=== PATIENT | female | born 1995 | race African-American/Black ===

== ENCOUNTER 2017-03-11 20:14 | Emergency (ER) | payer OTHER ==
--- NOTE | 2017-03-11 20:53 | ER Document Report ---
ED Neck/Back Problem - General Chief Complaint: Back Pain Stated Complaint: BACK INJURY Time Seen by Provider: 03/11/17 20:49 Mode of Arrival: Ambulatory Information source: Patient TRAVEL OUTSIDE OF THE [place] IN LAST 30 DAYS: No - HPI Patient complains to provider of: Pain, Injury - 21-year-old female presented to the emergency room today stating she had made back pain right lateral of midline after moving a dresser. - Related Data Allergies/Adverse Reactions: No Known Allergies Allergy (Verified 04/13/16 11:56) Past Medical History - General Information source: Patient - Social History Smoking Status: Never Smoker Cigarette use (# per day): No Chew tobacco use (# tins/day): No Smoking Education Provided: No Family History: None Renal/ Medical History: Denies: Hx Peritoneal Dialysis Review of Systems - Review of Systems Constitutional: No symptoms reported EENT: No symptoms reported Cardiovascular: No symptoms reported Respiratory: No symptoms reported Gastrointestinal: No symptoms reported Genitourinary: No symptoms reported Female Genitourinary: No symptoms reported Musculoskeletal: No symptoms reported Skin: No symptoms reported Hematologic/Lymphatic: No symptoms reported Neurological/Psychological: No symptoms reported Physical Exam - Vital signs Vitals: Temp Pulse Resp BP Pulse Ox 97.5 F 106 H 20 146/82 H 98 03/11/17 20:17 03/11/17 20:17 03/11/17 20:17 03/11/17 20:17 03/11/17 20:17 Interpretation: Normal - General General appearance: Appears well, Alert - HEENT Head: Normocephalic, Atraumatic Eyes: Normal Pupils: PERRL - Respiratory Respiratory status: No respiratory distress Chest status: Nontender Breath sounds: Normal Chest palpation: Normal - Cardiovascular Rhythm: Regular Heart sounds: Normal auscultation Murmur: No - Abdominal Inspection: Normal Distension: No distension Bowel sounds: Normal Tenderness: Nontender Organomegaly: No organomegaly - Back Back: Normal, Nontender, Other - Palpable spasm right lateral of midline to thoracic spine no crepitus no pain no tenderness midline. - Extremities General upper extremity: Normal inspection, Nontender, Normal color, Normal ROM , Normal temperature General lower extremity: Normal inspection, Nontender, Normal color, Normal ROM , Normal temperature, Normal weight bearing. No: Sindy's sign - Neurological Neuro grossly intact: Yes Cognition: Normal Orientation: AAOx4 [place] Coma Scale Eye Opening: Spontaneous [place] Coma Scale Verbal: Oriented [place] Coma Scale Motor: Obeys Commands [place] Coma Scale Total: 15 Speech: Normal Motor strength normal: LUE, RUE, LLE, RLE Sensory: Normal - Psychological Associated symptoms: Normal affect, Normal mood - Skin Skin Temperature: Warm Skin Moisture: Dry Skin Color: Normal Course - Re-evaluation Re-evalutation: 03/11/17 20:51 No lower extremity numbness tingling saddle anesthesia loss of bowel or bladder function ambulatory with a rhythmic and steady gait good distal pulses. - Vital Signs Vital signs: Temp Pulse Resp BP Pulse Ox 97.5 F 106 H 20 146/82 H 98 03/11/17 20:17 03/11/17 20:17 03/11/17 20:17 03/11/17 20:17 03/11/17 20:17 Discharge - Discharge Clinical Impression: Thoracic myofascial strain Qualifiers: Encounter type: initial encounter Qualified Code(s): S29.019A - Strain of muscle and tendon of unspecified wall of thorax, initial encounter Condition: Good Disposition: HOME, SELF-CARE Instructions: Low Back Pain ([facility]), Muscle Strain ([facility]) Additional Instructions: Myofascial Pain Myofascial pain syndrome is chronic or recurring muscle pain. The pain can be aching, cramping, or burning. Sometimes tingling and numbness accompanies the pain. It most often affects the neck, upper back, and shoulders. Pain may radiate into the arms and hands. The pain has no clear-cut explanation. It may begin with an injury, but we don't know why the pain continues. Myofascial pain syndrome may become worse with stress, anxiety, or emotional upset, or after over-use of the muscles. The symptoms will usually go away with time, but sometimes this takes weeks or months. Rest the area when there is a flair of pain. Either cold packs or heat can reduce spasm and pain. Antiinflammatory medication such as ibuprofen can help reduce pain and inflammation. Keep your body in good physical condition by getting enough exercise. Stretching exercises of the involved muscles can help. Call the doctor or return if pain becomes severe, or if you develop new symptoms. Follow-up with private doctor in 1 to 2 days for final radiology readings please return to the emergency room for any change worsening condition. Follow up with private M.D. for all other routine health care needs. Prescriptions: Hydrocodone/Acetaminophen [Perley 5-325 Tablet] 1 each PO Q4 PRN #20 tablet PRN Reason:
[2017-03-11 21:20] VITALS: BP 135/86
== END 2017-03-11 21:15 | disposition home or self-care (01) ==
LOC: ER 20:14
DX: S29.019A Strain of muscle and tendon of unspecified wall of thorax, initial encounter (principal); X50.0XXA Overexertion from strenuous movement or load, initial encounter
CPT/HCPCS: 99283

== ENCOUNTER 2018-01-03 23:50 | Emergency (ER) | payer OTHER ==
[2018-01-04] MEDS ORDERED: NORMAL SALINE 1000 ML 1,000 ML IV ONE (00:44)
--- NOTE | 2018-01-04 00:47 | ER Document Report ---
ED General - General Chief Complaint: Epigastric pain, Gallbladder problem Stated Complaint: ABDOMINAL PAIN Time Seen by Provider: 01/04/18 00:41 Mode of Arrival: Ambulatory Information source: Patient Notes: This is a 22-year-old female 2 para 1, 24 weeks who presents to the emergency room with upper abdominal pain. Patient states that she was diagnosed with gallstones while she was in [place] 2 months ago. She states she felt fine earlier in the day but started having upper abdominal discomfort towards this evening. The patient does not feel like she is having any contractions TRAVEL OUTSIDE OF THE [place] IN LAST 30 DAYS: No - HPI Onset: Just prior to arrival Onset/Duration: Gradual Quality of pain: Dull Severity: Moderate Pain Level: 2 Associated symptoms: denies: Chills, Fever Exacerbated by: Denies Relieved by: Denies Similar symptoms previously: Yes Recently seen / treated by doctor: Yes - Related Data Allergies/Adverse Reactions: No Known Allergies Allergy (Verified 04/13/16 11:56) Past Medical History - General Information source: Patient - Social History Smoking Status: Never Smoker Cigarette use (# per day): No Chew tobacco use (# tins/day): No Frequency of alcohol use: None Drug Abuse: None Lives with: Family Family History: None Patient has suicidal ideation: No Patient has homicidal ideation: No - Medical History Medical History: Negative Renal/ Medical History: Denies: Hx Peritoneal Dialysis GI Medical History: Reports: Other - Recently diagnosed with gallstones Surgical Hx: Negative - Immunizations Hx Diphtheria, Pertussis, Tetanus Vaccination: Yes Review of Systems - Review of Systems Constitutional: denies: Chills, Fever EENT: No symptoms reported Cardiovascular: No symptoms reported Respiratory: No symptoms reported Gastrointestinal: See HPI Genitourinary: No symptoms reported Female Genitourinary: No symptoms reported Musculoskeletal: No symptoms reported Skin: No symptoms reported Hematologic/Lymphatic: No symptoms reported Neurological/Psychological: No symptoms reported Physical Exam - Vital signs Vitals: Temp Pulse Resp BP Pulse Ox 97.5 F 95 18 131/70 H 100 01/03/18 23:57 01/03/18 23:57 01/03/18 23:57 01/03/18 23:57 01/03/18 23:57 Notes: Physical exam: GENERAL: 22-year-old female, alert and oriented 3, no acute distress HEAD: Atraumatic, normocephalic. EYES: Pupils equal round and reactive to light, extraocular movements intact, sclera anicteric, conjunctiva are normal. ENT: TMs normal, nares patent, oropharynx clear without exudates. Moist mucous membranes. NECK: Normal range of motion, supple without obvious mass or JVD. LUNGS: Breath sounds clear to auscultation bilaterally and equal. No wheezes rales or rhonchi. HEART: Regular rate and rhythm without murmurs, rubs or gallops. ABDOMEN: Soft, normoactive bowel sounds. Mild tenderness to the upper abdomen to palpation. No guarding, no rebound. No masses appreciated. EXTREMITIES: Normal range of motion, no pitting or edema. No clubbing or cyanosis. NEUROLOGICAL: Cranial nerves II through XII grossly intact. Normal speech, moving all extremities. PSYCH: Normal mood, normal affect. SKIN: Warm, Dry, normal turgor, no rashes or lesions noted. Course - Vital Signs Vital signs: Temp Pulse Resp BP Pulse Ox 97.5 F 95 18 131/70 H 100 01/03/18 23:57 01/03/18 23:57 01/03/18 23:57 01/03/18 23:57 01/03/18 23:57 - Laboratory Result Diagrams: 01/04/18 01:25 01/04/18 01:25 Laboratory results interpreted by me: 01/04/18 01/04/18 01/04/18 01:25 01:25 02:10 WBC 14.5 H Hgb 11.6 L Hct 35.3 L Seg Neutrophils % 80.4 H Absolute Neutrophils 11.6 H Chloride 109 H BUN 6 L AST 48 H Urine Ketones TRACE H Urine Blood SMALL H - Diagnostic Test Radiology reviewed: Image reviewed, Reports reviewed - Ultrasound of the right upper quadrant shows gallstones with sludge without any obvious evidence of cholecystitis.Limited OB ultrasound shows good heartbeat Discharge - Discharge Clinical Impression: Cholelithiasis, 24 weeks Condition: Stable Disposition: HOME, SELF-CARE Additional Instructions: Thank you for choosing [facility] for your care. The examination and treatment you have received in the Emergency Department today has been rendered on an emergency basis only and is not intended to be a substitute for complete medical care. You should contact your doctor as it is important that she/he examine you for any new or remaining problems. If given a copy of any lab tests or radiology reports, please bring them with you when you see your physician. If your problem worsens or new symptoms appear and you are unable to arrange prompt follow-up care, return to the Emergency Department. Specific signs to look out for: Worsening abdominal pain, fever (temperature greater than 100.5), contractions, or concerns or getting worse. Any other instructions: Avoid fried fatty food. Follow-up with your OB doctor. Referrals: DANIELITO GUILLERMO MD [Primary Care Provider] - Follow up in 3-5 days
[2018-01-04 01:39] LABS: ABSOLUTE EOSINOPHILS # (AUTO) 0.2 10^3/uL (0.0-0.6); ABSOLUTE LYMPHOCYTES (AUTO) 2.1 10^3/uL (0.5-4.7); ABSOLUTE MONOCYTES (AUTO) 0.6 10^3/uL (0.1-1.4); ABSOLUTE NEUT (AUTO) 11.6 10^3/uL (1.7-8.2); BASOPHILS % (AUTO) 0.1 % (0-2); EOSINOPHILS % (AUTO) 1.1 % (0-6); HEMATOCRIT 35.3 % (36.0-47.0); HEMOGLOBIN 11.6 g/dL (12.0-15.5); LYMPHOCYTES % (AUTO) 14.5 % (13-45); MEAN CORPUSCULAR HEMOGLOBIN 28.7 pg (27.0-33.4); MEAN CORPUSCULAR VOLUME 87 fl (80-97); MONOCYTES % (AUTO) 3.9 % (3-13); PLATELET COUNT 258 10^3/uL (150-450); RED BLOOD COUNT 4.06 10^6/uL (3.72-5.28); RED CELL DISTRIBUTION WIDTH 13.8 % (11.5-14.0); SEGMENTED NEUTROPHILS % (AUTO) 80.4 % (42-78); TOTAL CELLS COUNTED % (AUTO) 100 %; WHITE BLOOD COUNT 14.5 10^3/uL (4.0-10.5)
[2018-01-04 01:52] LABS: ALANINE AMINOTRANSFERASE 29 U/L (9-52); ALBUMIN 3.7 g/dL (3.5-5.0); ALKALINE PHOSPHATASE 58 U/L (38-126); ANION GAP 9 (5-19); ASPARTATE AMINO TRANSFERASE 48 U/L (14-36); BILIRUBIN,DIRECT 0.2 mg/dL (0.0-0.4); BILIRUBIN,TOTAL 0.2 mg/dL (0.2-1.3); BLOOD UREA NITROGEN 6 mg/dL (7-20); CARBON DIOXIDE 22 mmol/L (22-30); CHLORIDE 109 mmol/L (98-107); GLUCOSE 106 mg/dL (75-110); POTASSIUM 3.8 mmol/L (3.6-5.0); TOTAL PROTEIN 7.1 g/dL (6.3-8.2)
[2018-01-04 02:40] LABS: APPEARANCE,URINE CLEAR; BILIRUBIN,URINE NEGATIVE (NEGATIVE); COLOR,URINE YELLOW; GLUCOSE, URINE NEGATIVE (NEGATIVE); KETONES,URINE TRACE mg/dL (NEGATIVE); LEUKOCYTE ESTERASE,URINE NEGATIVE (NEGATIVE); NITRITE,URINE NEGATIVE (NEGATIVE); PROTEIN,URINE NEGATIVE (NEGATIVE); URINE SPECIFIC GRAVITY 1.019; UROBILINOGEN,URINE NEGATIVE mg/dL (<2.0)
--- NOTE | 2018-01-04 03:42 | RADIOLOGY REPORT (SQ) ---
EXAM DESCRIPTION: U/S ABDOMEN LIMITED W/O DOP CLINICAL HISTORY: upper abd pain eval for gb disease COMPARISON: None. TECHNIQUE: Real-time sonographic images of the right upper abdomen were obtained using a curved multihertz transducer. FINDINGS: Pancreas: The visualized portions of the pancreas are unremarkable. Vascular: The visualized portions of the aorta and IVC are unremarkable. Liver: The liver has normal contour and echogenicity. Hepatopedal flow in the portal vein. The common bile duct measures 0.4 cm. Gallbladder: Cholelithiasis as well as gallbladder sludge identified in the gallbladder lumen. Normal wall thickness. Negative reported sonographic Man sign. Right Kidney: The right kidney measures 13.3 cm in length. Mildly dilated right renal pelvis. IMPRESSION: 1. Cholelithiasis and gallbladder sludge. No other sonographic evidence of acute cholecystitis. 2. Mildly dilated right renal pelvis is at the upper limits of normal for right kidney during .
[2018-01-04] MEDS ORDERED: DIPHENHYDRAMINE HCL 50 MG/ML VIAL IV ONE (03:44)
[2018-01-04] MEDS ORDERED: MORPHINE SULFATE 10 MG/ML INJ IV ONE (03:44)
--- NOTE | 2018-01-04 03:44 | RADIOLOGY REPORT (SQ) ---
EXAM DESCRIPTION: U/S OB LIMITED CLINICAL HISTORY: 22 years Female, upper abdominal pain COMPARISON: None. TECHNIQUE: Limited second trimester obstetrical ultrasound for laterally. FINDINGS: presentation: Cephalic Placenta: Anterior placenta. heart rate: 147 bpm. Amniotic fluid: LVP of 4.5 cm. Cervical length: 2.6 cm. Closed. IMPRESSION: Single live intrauterine with heart rate of 147 beats for minute.
[2018-01-04 04:32] VITALS: BP 133/88
== END 2018-01-04 04:37 | disposition home or self-care (01) ==
LOC: ER 23:50
DX: O99.612 Diseases of the digestive system complicating pregnancy, second trimester (principal); K80.20 Calculus of gallbladder without cholecystitis without obstruction; O26.892 Other specified pregnancy related conditions, second trimester; R10.10 Upper abdominal pain, unspecified; Z3A.24 24 weeks gestation of pregnancy
CPT/HCPCS: 99284; 96361; 96374; 96375; 36415; 85025; 80053; 81001; 76705; 76815; J1200; J2270; J7030

== ENCOUNTER 2018-01-05 08:48 | Observation (INO) | payer OTHER ==
[2018-01-05] MEDS ORDERED: METOCLOPRAMIDE HCL INJ/PF 10 MG/2 ML SDV IV ONE (09:29)
[2018-01-05] MEDS ORDERED: NORMAL SALINE 1000 ML 1,000 ML IV ONE ×2 (09:30→11:35)
--- NOTE | 2018-01-05 09:35 | ER Document Report ---
ED Medical Screen (RME) - General Chief Complaint: Upper Abdominal Pain Stated Complaint: RIGHT UPPER QUADRANT PAIN Time Seen by Provider: 01/05/18 09:24 Mode of Arrival: Ambulatory Information source: Patient Notes: 22 yr old female 21 weeks presents with continued RUQ pain, pt admits to n/v since last night when she was seen had u/s consistent with cholilithiasis without cholecystitis. Pt afebrile I did contact surgeon poured concrete wall technician, he will evaluate the patient I have greeted and performed a rapid initial assessment of this patient. A comprehensive ED assessment and evaluation of the patient, analysis of test results and completion of the medical decision making process will be conducted by additional ED providers. PHYSICAL EXAMINATION: GENERAL: Well-appearing, well-nourished and in no acute distress. HEAD: Atraumatic, normocephalic. EYES: Pupils equal round extraocular movements intact, conjunctiva are normal. ENT: Nares patent NECK: Normal range of motion LUNGS: No respiratory distress Abdomen: Gravid tender right upper quadrant Musculoskeletal: Normal range of motion NEUROLOGICAL: Normal speech, normal gait. PSYCH: Normal mood, normal affect. SKIN: Warm, Dry, normal turgor, no rashes or lesions noted. TRAVEL OUTSIDE OF THE [place] IN LAST 30 DAYS: No - Related Data Allergies/Adverse Reactions: No Known Allergies Allergy (Verified 04/13/16 11:56) Past Medical History - Social History Frequency of alcohol use: None Drug Abuse: None Renal/ Medical History: Denies: Hx Peritoneal Dialysis Past Surgical History: Reports: Hx Section - X1 - Immunizations Hx Diphtheria, Pertussis, Tetanus Vaccination: Yes Physical Exam - Vital signs Vitals: Temp Pulse Resp BP Pulse Ox 97.9 F 90 16 135/67 H 98 01/05/18 08:52 01/05/18 08:52 01/05/18 08:52 01/05/18 08:52 01/05/18 08:52 Course - Vital Signs Vital signs: Temp Pulse Resp BP Pulse Ox 97.9 F 90 16 135/67 H 98 01/05/18 08:52 01/05/18 08:52 01/05/18 08:52 01/05/18 08:52 01/05/18 08:52
[2018-01-05] MEDS ORDERED: ACETAMINOPHEN 325 MG TABLET PO ONE (09:43)
--- NOTE | 2018-01-05 09:54 | ER Document Report ---
ED GI/ - General Chief Complaint: Upper Abdominal Pain Stated Complaint: RIGHT UPPER QUADRANT PAIN Time Seen by Provider: 01/05/18 09:24 Mode of Arrival: Ambulatory Notes: 22-year-old female with 24 weeks returns to the emergency room today because of persistent epigastric right upper quadrant pain that started yesterday after eating potato chips. This is her second episode of gallbladder attack. She does not hurt as bad today as she did yesterday but she is wanting nausea medication and pain medication. Vomited once this morning and no BM in 2 days. TRAVEL OUTSIDE OF THE [place] IN LAST 30 DAYS: No - Related Data Allergies/Adverse Reactions: No Known Allergies Allergy (Verified 04/13/16 11:56) Past Medical History - General Information source: Patient - Social History Smoking Status: Former Smoker Frequency of alcohol use: None Drug Abuse: None Lives with: Family Family History: None Patient has suicidal ideation: No Patient has homicidal ideation: No - Medical History Medical History: Negative Renal/ Medical History: Denies: Hx Peritoneal Dialysis Past Surgical History: Reports: Hx Section - X1 - Immunizations Hx Diphtheria, Pertussis, Tetanus Vaccination: Yes Review of Systems - Review of Systems Constitutional: No symptoms reported EENT: No symptoms reported Cardiovascular: No symptoms reported Respiratory: No symptoms reported Gastrointestinal: See HPI Genitourinary: No symptoms reported Female Genitourinary: No symptoms reported Musculoskeletal: No symptoms reported Skin: No symptoms reported Hematologic/Lymphatic: No symptoms reported Neurological/Psychological: No symptoms reported Physical Exam - Vital signs Vitals: Temp Pulse Resp BP Pulse Ox 97.9 F 90 16 135/67 H 98 01/05/18 08:52 01/05/18 08:52 01/05/18 08:52 01/05/18 08:52 01/05/18 08:52 Interpretation: Normal - General General appearance: Appears well, Alert - HEENT Head: Normocephalic, Atraumatic Eyes: Normal Conjunctiva: Normal Pupils: PERRL Mucous membranes: Normal Pharynx: Normal Neck: Supple. No: Lymphadenopathy - Respiratory Respiratory status: No respiratory distress Chest status: Nontender Breath sounds: Normal Chest palpation: Normal - Cardiovascular Rhythm: Regular Heart sounds: Normal auscultation Murmur: No - Abdominal Inspection: Normal Distension: No distension Bowel sounds: Normal Tenderness: Tender - RUQ Organomegaly: Mass - fundus - Back Back: Normal, Nontender. No: CVA tenderness - Extremities General upper extremity: Normal inspection, Nontender, Normal color, Normal ROM , Normal temperature General lower extremity: Normal inspection, Nontender, Normal color, Normal ROM , Normal temperature, Normal weight bearing. No: Sindy's sign - Neurological Neuro grossly intact: Yes Cognition: Normal Orientation: AAOx4 [place] Coma Scale Eye Opening: Spontaneous [place] Coma Scale Verbal: Oriented [place] Coma Scale Motor: Obeys Commands [place] Coma Scale Total: 15 Speech: Normal Motor strength normal: LUE, RUE, LLE, RLE Sensory: Normal - Psychological Associated symptoms: Normal affect, Normal mood - Skin Skin Temperature: Warm Skin Moisture: Dry Skin Color: Normal Skin irregularity: negative: Rash Course - Re-evaluation Re-evalutation: 01/05/18 11:27 Dr. Pond will take the patient to the OR for lap saundra today. The patient has been n.p.o. I will add normal saline at 150 an hour. She is more comfortable after the morphine IV. - Vital Signs Vital signs: Temp Pulse Resp BP Pulse Ox 97.9 F 90 16 135/67 H 98 01/05/18 08:52 01/05/18 08:52 01/05/18 08:52 01/05/18 08:52 01/05/18 08:52 - Laboratory Result Diagrams: 01/05/18 09:40 01/05/18 09:40 Laboratory results interpreted by me: 01/05/18 01/05/18 09:40 09:40 Hct 35.9 L BUN 4 L Total Bilirubin 1.6 H Direct Bilirubin 1.3 H AST 105 H ALT 158 H Discharge - Discharge Clinical Impression: Cholelithiasis pain, 24 week , Nausea and vomiting, Elevated liver enzymes Condition: Good Disposition: ADMITTED INPATIENT
[2018-01-05 10:01] LABS: ABSOLUTE EOSINOPHILS # (AUTO) 0.1 10^3/uL (0.0-0.6); ABSOLUTE LYMPHOCYTES (AUTO) 2.4 10^3/uL (0.5-4.7); ABSOLUTE MONOCYTES (AUTO) 0.5 10^3/uL (0.1-1.4); BASOPHILS % (AUTO) 0.3 % (0-2); EOSINOPHILS % (AUTO) 1.6 % (0-6); HEMATOCRIT 35.9 % (36.0-47.0); HEMOGLOBIN 12.1 g/dL (12.0-15.5); MEAN CORPUSCULAR HEMOGLOBIN 28.9 pg (27.0-33.4); MEAN CORPUSCULAR HGB CONC 33.7 g/dL (32.0-36.0); MEAN CORPUSCULAR VOLUME 86 fl (80-97); MONOCYTES % (AUTO) 5.8 % (3-13); PLATELET COUNT 304 10^3/uL (150-450); RED BLOOD COUNT 4.19 10^6/uL (3.72-5.28); RED CELL DISTRIBUTION WIDTH 13.7 % (11.5-14.0); SEGMENTED NEUTROPHILS % (AUTO) 66.3 % (42-78); TOTAL CELLS COUNTED % (AUTO) 100 %
[2018-01-05] MEDS ORDERED: MORPHINE SULFATE 10 MG/ML INJ IV ONE ×2 (10:06→12:53)
[2018-01-05 10:15] LABS: ALANINE AMINOTRANSFERASE 158 U/L (9-52); ALBUMIN 4.1 g/dL (3.5-5.0); ALKALINE PHOSPHATASE 96 U/L (38-126); ANION GAP 11 (5-19); ASPARTATE AMINO TRANSFERASE 105 U/L (14-36); BILIRUBIN,DIRECT 1.3 mg/dL (0.0-0.4); BILIRUBIN,TOTAL 1.6 mg/dL (0.2-1.3); BLOOD UREA NITROGEN 4 mg/dL (7-20); CALCIUM 9.4 mg/dL (8.4-10.2); CARBON DIOXIDE 22 mmol/L (22-30); CHLORIDE 107 mmol/L (98-107); GLUCOSE 86 mg/dL (75-110); LIPASE 55.3 U/L (23-300); POTASSIUM 3.8 mmol/L (3.6-5.0); SODIUM 139.7 mmol/L (137-145); TOTAL PROTEIN 7.5 g/dL (6.3-8.2)
[2018-01-05] MEDS ORDERED: DEXAMETHASONE SOD PHOSPHATE INJ 4 MG/1 ML VIAL ONE (11:51)
[2018-01-05] MEDS ORDERED: ROCURONIUM BROMIDE INJ 50 MG/5 ML VIAL IV ONE (11:51)
[2018-01-05] MEDS ORDERED: NEOSTIGMINE METHYLSULFATE 10 MG/10 ML VIAL ONE (11:51)
[2018-01-05] MEDS ORDERED: LIDOCAINE 2% INJ-PF (20 MG/ML) 2 ML AMPUL ONE (11:51)
[2018-01-05] MEDS ORDERED: GLYCOPYRROLATE INJ 0.4 MG/2 ML VIAL ONE (11:51)
[2018-01-05] MEDS ORDERED: SUCCINYLCHOLINE CHLORIDE INJ 200 MG/10 ML VIAL ONE (11:51)
[2018-01-05] MEDS ORDERED: ONDANSETRON HCL INJ/PF 4 MG/2 ML SDV ONE ×2 (11:51→21:08)
[2018-01-05 13:16] LABS: APPEARANCE,URINE CLEAR; BILIRUBIN,URINE NEGATIVE (NEGATIVE); COLOR,URINE YELLOW; GLUCOSE, URINE NEGATIVE (NEGATIVE); KETONES,URINE 80 mg/dL (NEGATIVE); LEUKOCYTE ESTERASE,URINE NEGATIVE (NEGATIVE); NITRITE,URINE NEGATIVE (NEGATIVE); PROTEIN,URINE NEGATIVE (NEGATIVE); URINE SPECIFIC GRAVITY 1.015; UROBILINOGEN,URINE NEGATIVE mg/dL (<2.0)
[2018-01-05] MEDS ORDERED: BUPIVACAINE HCL 0.25 % INJ/PF (2.5 MG/1 ML) 30 ML VIAL ONE (16:43)
[2018-01-05] MEDS ORDERED: LIDOCAINE 1% INJ-PF (10 MG/ML) 30 ML SDV ONE (16:43)
[2018-01-05] MEDS ORDERED: FENTANYL CITRATE INJ/PF 250 MCG/5 ML AMPULE ONE (16:44)
[2018-01-05] MEDS ORDERED: PROPOFOL INJ 200 MG/20 ML VIAL IV ONE (16:45)
[2018-01-05] MEDS ORDERED: ACETAMINOPHEN 100 ML IV ONE (16:45)
[2018-01-05] MEDS ORDERED: MIDAZOLAM 2 MG/2 ML INJ ONE (16:45)
[2018-01-05] MEDS ORDERED: FENTANYL CITRATE INJ/PF 100 MCG/2 ML AMPUL ONE ×2 (16:45→18:57)
--- NOTE | 2018-01-05 16:50 | PDOC H&P ---
History of Present Illness Admission Date/PCP: 01/05/18 12:18 History of Present Illness: MICHELE TAI is a 22 year old female who is 24 weeks . She presented to the ER with RUQ pain that started yesterday evening and has not stopped. She was in the ER yesterday and had an ultrasound that revealed gallstones, no pericholecystic fluid or wall thickening. She was discharged home on analgesics but this has not helped. She represented to the ER today because of continued pain. Today her LFTs are elevated. Past Medical History Psychiatric Medical History: Denies: Depression Past Surgical History Past Surgical History: Reports: Section - X1 Social History Lives with: Family Smoking Status: Former Smoker Frequency of Alcohol Use: None Hx Recreational Drug Use: No Drugs: None Hx Prescription Drug Abuse: No - Advance Directive Resuscitation Status: Full Code Family History Family History: None Parental Family History Reviewed: No Children Family History Reviewed: Unknown Sibling(s) Family History Reviewed.: Unknown Medication/Allergy Home Medications: No Home Medications 01/05/18 Allergies/Adverse Reactions: No Known Allergies Allergy (Verified 04/13/16 11:56) Review of Systems Constitutional: ABSENT: chills, fever(s), headache(s), weight gain, weight loss Eyes: ABSENT: visual disturbances Ears: ABSENT: hearing changes Cardiovascular: ABSENT: chest pain, dyspnea on exertion, edema, orthropnea, palpitations Respiratory: ABSENT: cough, hemoptysis Gastrointestinal: PRESENT: as per HPI Genitourinary: ABSENT: dysuria, hematuria Musculoskeletal: ABSENT: joint swelling Integumentary: ABSENT: rash, wounds Neurological: ABSENT: abnormal gait, abnormal speech, confusion, dizziness, focal weakness, syncope Psychiatric: ABSENT: anxiety, depression, homidical ideation, suicidal ideation Endocrine: ABSENT: cold intolerance, heat intolerance, polydipsia, polyuria Hematologic/Lymphatic: ABSENT: easy bleeding, easy bruising Physical Exam Vital Signs: Temp Pulse Resp BP Pulse Ox 98.1 F 88 30 H 135/80 H 100 01/05/18 14:39 01/05/18 14:39 01/05/18 14:39 01/05/18 14:39 01/05/18 14:39 Intake & Output 01/04/18 01/05/18 01/06/18 06:59 06:59 06:59 Weight 111.4 kg General appearance: PRESENT: mild distress, obese Head exam: PRESENT: atraumatic, normocephalic Eye exam: PRESENT: conjunctiva pink, EOMI, PERRLA. ABSENT: scleral icterus Ear exam: PRESENT: normal external ear exam Neck exam: ABSENT: carotid bruit, JVD, lymphadenopathy, thyromegaly Respiratory exam: PRESENT: clear to auscultation hellen. ABSENT: rales, rhonchi, wheezes Cardiovascular exam: PRESENT: RRR. ABSENT: diastolic murmur, rubs, systolic murmur GI/Abdominal exam: PRESENT: normal bowel sounds, tenderness - epigastric/RUQ Neurological exam: PRESENT: alert, awake, oriented to person, oriented to place , oriented to time, oriented to situation, CN II-XII grossly intact. ABSENT: motor sensory deficit Psychiatric exam: PRESENT: appropriate affect, normal mood. ABSENT: homicidal ideation, suicidal ideation Results Laboratory Results: 01/05/18 12:39 Urine Color YELLOW Urine Appearance CLEAR Urine pH 6.0 Ur Specific [place] 1.015 Urine Protein NEGATIVE Urine Glucose (UA) NEGATIVE Urine Ketones 80 H Urine Blood SMALL H Urine Nitrite NEGATIVE Ur Leukocyte Esterase NEGATIVE Urine WBC (Auto) 2 Urine RBC (Auto) 3 Assessment & Plan - Diagnosis (1) Calculus of gallbladder with acute cholecystitis Is this a current diagnosis for this admission?: Yes (2) Elevated liver enzymes Is this a current diagnosis for this admission?: Yes - Plan Summary Plan Summary: The patient is admitted Will have a laparoscopic cholecystectomy. OB consult SCDs incentive spirometry
[2018-01-05] MEDS ORDERED: FENTANYL CITRATE INJ/PF 100 MCG/2 ML AMPUL IV PRN ×3 (17:37)
[2018-01-05] MEDS ORDERED: ONDANSETRON HCL INJ/PF 4 MG/2 ML SDV IV PRN ×2 (17:37→20:43)
[2018-01-05] MEDS ORDERED: PROMETHAZINE HCL INJ 25 MG/1 ML VIAL IV PRN (17:37)
[2018-01-05] MEDS ORDERED: MEPERIDINE HCL/PF INJ 25 MG/1 ML DISP.SYRIN IV PRN (17:37)
[2018-01-05] MEDS ORDERED: DIPHENHYDRAMINE HCL 50 MG/ML VIAL IV PRN (17:37)
[2018-01-05] MEDS ORDERED: ENOXAPARIN SODIUM INJ 40 MG/0.4 ML DISP.SYRIN SUBCUT ONE (19:00)
--- NOTE | 2018-01-05 19:46 | Operative Report ---
Operative Report PREOPERATIVE DIAGNOSIS: Acute Cholecystitis POSTOPERATIVE DIAGNOSIS: Acute Cholecystitis OPERATION: Laparoscopic Cholecystectomy SURGEON: RAÚL PEREZ ANESTHESIA: GA TISSUE REMOVED OR ALTERED: Gallbladder COMPLICATIONS: None ESTIMATED BLOOD LOSS: 20 ml INTRAOPERATIVE FINDINGS: 1. Gallbladder distended with bile. 2. Flimsy adhesions around the gallbladder. 3. Dense adhesions in the Calot's triangle. 4. Gallstones. 5. Significant pericholecystic edema PROCEDURE: The patient was brought to the operating room and placed on the operating table. General endotracheal anesthesia was administered and she was positioned supine with both arms placed on arm boards. A time out was done. The abdomen was prepped with chloraprep and sterile drapes laid. Under sterile aseptic conditions, access to the peritoneal cavity was gained using the open Tavo technique with a 10mm port at the umbilicus. Pneumoperitoneum was insufflated to 15 mmHg. Three additional ports were placed, a 10mm midline subxiphoid port and two 5mm right subcostal ports, one in the midclavicular line and the other in the anterior axillary line. The gallbladder was first aspirated of 60 ml of greenish bile and then it was grasped at the fundus with a grasper passed through the lateral right subcostal port. The infundibulum was grasped with a grasper passed through the medial right subcostal port. The Calot's triangle was dissected out to expose the cystic duct and artery with a critical view of safety displayed anteriorly and posteriorly. There were dense adhesions in the Calot's triangle necessitating a careful dissection. The duct was doubly clipped toward the patient side and singly clipped toward the gallbladder and transected between the clips. The artery was transected with the Ligasure. The gallbladder was then dissected off the liver bed with the laparoscopic monopolar electrosurgical unit and retrieved from the peritoneal cavity in an endopouch. The pneumoperitoneum was desufflated and all the ports removed. The umbilical port site had the fascial layer closed with 0-vicryl. The skin incisions were closed with 4-0 monocryl subcuticular stitches. The wounds were infiltrated with local anesthesia, a 1:1 mixture of 1% lidocaine and 0.25% Bupivacaine, a total of 20 ml, they were cleaned and dressed with dermabond. The patient tolerated the procedure well, she was extubated in the operating room and taken to the PACU in stable condition.
[2018-01-05] MEDS ORDERED: MORPHINE SULFATE 10 MG/ML INJ IV PRN (20:43)
[2018-01-05] MEDS ORDERED: MORPHINE SULFATE 10 MG/ML INJ ONE (21:04)
[2018-01-05] MEDS ORDERED: MORPHINE SULFATE 10 MG/ML INJ INJ ONE (23:00)
[2018-01-06] MEDS: MORPHINE SULFATE 10 MG/ML INJ IV PRN ×5 (00:35→22:18)
[2018-01-06 07:10] LABS: ALANINE AMINOTRANSFERASE 147 U/L (9-52); ALBUMIN 3.7 g/dL (3.5-5.0); ALKALINE PHOSPHATASE 100 U/L (38-126); ANION GAP 8 (5-19); ASPARTATE AMINO TRANSFERASE 90 U/L (14-36); BILIRUBIN,DIRECT 2.7 mg/dL (0.0-0.4); BILIRUBIN,TOTAL 3.1 mg/dL (0.2-1.3); BLOOD UREA NITROGEN 3 mg/dL (7-20); CALCIUM 9.2 mg/dL (8.4-10.2); CARBON DIOXIDE 21 mmol/L (22-30); CHLORIDE 106 mmol/L (98-107); GLUCOSE 100 mg/dL (75-110); SODIUM 135.2 mmol/L (137-145)
[2018-01-06 07:21] LABS: POTASSIUM 4.7 mmol/L (3.6-5.0)
--- NOTE | 2018-01-06 08:54 | PDOC PROGRESS REPORT ---
Subjective Progress Note for:: 01/06/18 Subjective:: s/p Laparoscopic cholecystectomy Intrauterine - viable Abdominal pain Reason For Visit: CHOLELITHIASIS PAIN, 24 WEEK Physical Exam - Physical Exam Vital Signs: Temp Pulse Resp BP Pulse Ox 97.5 F 70 20 133/71 H 100 01/06/18 08:04 01/06/18 08:04 01/06/18 08:04 01/06/18 08:04 01/06/18 08:04 Intake & Output 01/05/18 01/06/18 01/07/18 06:59 06:59 06:59 Intake Total 2800 Output Total 510 Balance 2290 Weight 112.1 kg General appearance: PRESENT: no acute distress, cooperative Mouth exam: PRESENT: moist GI/Abdominal exam: PRESENT: soft, other - mild ttp. incisions c/d/i no erythema or drainage gravid no fundal tenderness Rectal exam: PRESENT: deferred Neurological exam: PRESENT: alert, altered - Obstetrical Exam External Genitalia: normal Result Laboratory Results: 01/06/18 06:28 01/05/18 01/06/18 12:39 06:28 Sodium 135.2 L Potassium 4.7 Chloride 106 Carbon Dioxide 21 L Anion Gap 8 BUN 3 L Creatinine 0.50 L Est GFR ( Amer) > 60 Est GFR (Non-Af Amer) > 60 Glucose 100 Calcium 9.2 Total Bilirubin 3.1 H AST 90 H ALT 147 H Alkaline Phosphatase 100 Total Protein 7.0 Albumin 3.7 Urine Color YELLOW Urine Appearance CLEAR Urine pH 6.0 Ur Specific Center 1.015 Urine Protein NEGATIVE Urine Glucose (UA) NEGATIVE Urine Ketones 80 H Urine Blood SMALL H Urine Nitrite NEGATIVE Ur Leukocyte Esterase NEGATIVE Urine WBC (Auto) 2 Urine RBC (Auto) 3 Assessment & Plan - Diagnosis (1) Calculus of gallbladder with acute cholecystitis Is this a current diagnosis for this admission?: Yes (2) Elevated liver enzymes Is this a current diagnosis for this admission?: Yes (3) History of primary section Is this a current diagnosis for this admission?: Yes
[2018-01-06] MEDS: ENOXAPARIN SODIUM INJ 40 MG/0.4 ML DISP.SYRIN SUBCUT SCH (09:56)
[2018-01-06] MEDS ORDERED: OXYCODONE-ACETAMINOPHEN 5-325 MG TABLET ONE (12:44)
[2018-01-06] MEDS ORDERED: OXYCODONE HCL IR 5 MG TABLET ONE (12:46)
--- NOTE | 2018-01-06 13:44 | PDOC PROGRESS REPORT ---
Subjective Progress Note for:: 01/06/18 Subjective:: POD #1 s/p laparoscopic cholecystectomy She had some contractions briefly last night but that has since stopped. Transferred to L&D and being seen by OB. Input appreciated. No nausea or vomiting (nausea only with narcotic analgesics). Feels bloated. Reason For Visit: CHOLELITHIASIS PAIN, 24 WEEK Physical Exam Vital Signs: Temp Pulse Resp BP Pulse Ox 97.7 F 61 16 142/85 H 100 01/06/18 11:06 01/06/18 11:06 01/06/18 11:06 01/06/18 11:06 01/06/18 11:06 Intake & Output 01/05/18 01/06/18 01/07/18 06:59 06:59 06:59 Intake Total 2800 Output Total 510 Balance 2290 Weight 112.1 kg General appearance: PRESENT: no acute distress Head exam: PRESENT: atraumatic, normocephalic Respiratory exam: PRESENT: clear to auscultation hellen. ABSENT: rales, rhonchi, wheezes Cardiovascular exam: PRESENT: RRR. ABSENT: diastolic murmur, rubs, systolic murmur GI/Abdominal exam: PRESENT: normal bowel sounds, soft, other - incisions are clean, dry, intact with dermabond dressings. Neurological exam: PRESENT: alert, awake, oriented to person, oriented to place , oriented to time, oriented to situation, CN II-XII grossly intact. ABSENT: motor sensory deficit Results Laboratory Results: 01/06/18 06:28 01/06/18 06:28 Sodium 135.2 L Potassium 4.7 Chloride 106 Carbon Dioxide 21 L Anion Gap 8 BUN 3 L Creatinine 0.50 L Est GFR ( Amer) > 60 Est GFR (Non-Af Amer) > 60 Glucose 100 Calcium 9.2 Total Bilirubin 3.1 H AST 90 H ALT 147 H Alkaline Phosphatase 100 Total Protein 7.0 Albumin 3.7 Assessment & Plan - Diagnosis (1) Calculus of gallbladder with acute cholecystitis Is this a current diagnosis for this admission?: Yes (2) Elevated liver enzymes Is this a current diagnosis for this admission?: Yes - Plan Summary Plan Summary: Doing better post cholecystectomy. Will observe her today because she is . Possibly discharge her tomorrow.
[2018-01-06] MEDS: OXYCODONE-ACETAMINOPHEN 5-325 MG TABLET PO PRN (19:29)
[2018-01-06] MEDS: OXYCODONE HCL IR 5 MG TABLET PO PRN (19:30)
[2018-01-07] MEDS: OXYCODONE HCL IR 5 MG TABLET PO PRN ×4 (01:55→20:21)
[2018-01-07] MEDS: OXYCODONE-ACETAMINOPHEN 5-325 MG TABLET PO PRN ×4 (01:56→20:20)
[2018-01-07] MEDS: MORPHINE SULFATE 10 MG/ML INJ IV PRN ×2 (02:51→23:26)
[2018-01-07 07:16] LABS: ALANINE AMINOTRANSFERASE 155 U/L (9-52); ALBUMIN 3.7 g/dL (3.5-5.0); ALKALINE PHOSPHATASE 119 U/L (38-126); ANION GAP 9 (5-19); ASPARTATE AMINO TRANSFERASE 86 U/L (14-36); BILIRUBIN,DIRECT 2.7 mg/dL (0.0-0.4); BILIRUBIN,TOTAL 3.5 mg/dL (0.2-1.3); BLOOD UREA NITROGEN 2 mg/dL (7-20); CARBON DIOXIDE 26 mmol/L (22-30); CHLORIDE 103 mmol/L (98-107); GLUCOSE 94 mg/dL (75-110); POTASSIUM 3.8 mmol/L (3.6-5.0); SODIUM 137.9 mmol/L (137-145); TOTAL PROTEIN 6.7 g/dL (6.3-8.2)
[2018-01-07] MEDS: ENOXAPARIN SODIUM INJ 40 MG/0.4 ML DISP.SYRIN SUBCUT SCH (10:41)
[2018-01-07] MEDS ORDERED: PIPERACILLIN/TAZOBACTAM 3.375 GM VIAL IV SCH (12:00)
[2018-01-07 13:24] LABS: ABSOLUTE LYMPHOCYTES (AUTO) 1.4 10^3/uL (0.5-4.7); ABSOLUTE MONOCYTES (AUTO) 0.5 10^3/uL (0.1-1.4); ABSOLUTE NEUT (AUTO) 6.2 10^3/uL (1.7-8.2); BASOPHILS % (AUTO) 0.1 % (0-2); EOSINOPHILS % (AUTO) 0.2 % (0-6); HEMATOCRIT 34.5 % (36.0-47.0); HEMOGLOBIN 11.7 g/dL (12.0-15.5); LYMPHOCYTES % (AUTO) 17.4 % (13-45); MEAN CORPUSCULAR HEMOGLOBIN 29.2 pg (27.0-33.4); MEAN CORPUSCULAR VOLUME 86 fl (80-97); MONOCYTES % (AUTO) 5.6 % (3-13); PLATELET COUNT 275 10^3/uL (150-450); RED BLOOD COUNT 4.02 10^6/uL (3.72-5.28); SEGMENTED NEUTROPHILS % (AUTO) 76.7 % (42-78); TOTAL CELLS COUNTED % (AUTO) 100 %; WHITE BLOOD COUNT 8.1 10^3/uL (4.0-10.5)
[2018-01-07] MEDS ORDERED: PIPERACILLIN SODIUM/TAZOBACTAM 3.375 GM in NORMAL SALINE 100 ML IV SCH (15:00)
--- NOTE | 2018-01-07 17:26 | RADIOLOGY REPORT (SQ) ---
EXAM DESCRIPTION: MRI ABDOMEN WITHOUT COMPLETED DATE/TIME: 01/07/2018 5:12 pm REASON FOR STUDY: MRCP - detect CBD stone COMPARISON: Correlation made to ultrasound from 01/04/2018 TECHNIQUE: Noncontrast MRCP. Source and MIP images reviewed. LIMITATIONS: None. FINDINGS: GALLBLADDER: Surgically absent. INTRAHEPATIC DUCTS: Dilated. EXTRAHEPATIC DUCTS: Dilated common bile duct measuring up to 11 mm with filling defects seen dependen tly just proximal to the ampulla on series 5, image 25 suggestive of retained stones/debris. No dilat ation of the pancreatic duct. PANCREAS: Generally homogeneous, no gross mass or significant signal alteration. No surrounding infl ammatory changes or fluid. Pancreatic duct is normal. LIVER, SPLEEN, KIDNEYS, ADRENALS: Stable right-sided hydronephrosis. No additional acute or signific ant findings. VESSELS: No evidence of aneurysm. Grossly appropriate flow voids in the major vascular structures. LUNG BASES: Grossly clear. OTHER: Mild free fluid likely within normal limits for recent cholecystectomy. Partial visualization intrauterine . IMPRESSION: EXPECTED POSTSURGICAL CHANGE RELATED TO CHOLECYSTECTOMY WITH INTERVAL DEVELOPMENT OF INT RA AND EXTRAHEPATIC BILIARY DUCTAL DILATATION WITH PROBABLE RETAINED STONES/ DEBRIS IN THE DISTAL COM MON BILE DUCT. STABLE RIGHT HYDRONEPHROSIS LIKELY SECONDARY TO . TECHNICAL DOCUMENTATION: JOB ID: [id number] [employer]- All Rights Reserved Reading location - IP/workstation name: [email or web address]
[2018-01-07] MEDS: PIPERACILLIN SODIUM/TAZOBACTAM 3.375 GM in NORMAL SALINE 100 ML IV SCH ×2 (17:42→23:07)
--- NOTE | 2018-01-07 21:55 | PDOC PROGRESS REPORT ---
Subjective Progress Note for:: 01/07/18 Subjective:: POD #2 s/p laparoscopic cholecystectomy Patient feels subjectively fine. No pain. No nausea or vomiting. Reason For Visit: CHOLELITHIASIS PAIN, 24 WEEK Physical Exam Vital Signs: Temp Pulse Resp BP Pulse Ox 98.1 F 71 18 123/71 99 01/07/18 16:00 01/07/18 16:00 01/07/18 16:00 01/07/18 16:00 01/07/18 16:00 Intake & Output 01/06/18 01/07/18 01/08/18 06:59 06:59 06:59 Intake Total 2800 500 1000 Output Total 510 Balance 2290 500 1000 Weight 112.1 kg 113.4 kg General appearance: PRESENT: no acute distress Respiratory exam: PRESENT: clear to auscultation hellen. ABSENT: rales, rhonchi, wheezes Cardiovascular exam: PRESENT: RRR. ABSENT: diastolic murmur, rubs, systolic murmur GI/Abdominal exam: PRESENT: normal bowel sounds, soft, other - port site incisions are clean, dry, intact.. ABSENT: distended, guarding, mass, organolmegaly, rebound, tenderness Rectal exam: PRESENT: deferred Neurological exam: PRESENT: alert, awake, oriented to person, oriented to place , oriented to time, oriented to situation, CN II-XII grossly intact. ABSENT: motor sensory deficit Psychiatric exam: PRESENT: appropriate affect, normal mood. ABSENT: homicidal ideation, suicidal ideation Results Laboratory Results: 01/07/18 13:12 01/07/18 06:54 01/07/18 01/07/18 06:54 13:12 WBC 8.1 RBC 4.02 Hgb 11.7 L Hct 34.5 L MCV 86 MCH 29.2 MCHC 34.0 RDW 14.0 Plt Count 275 Seg Neutrophils % 76.7 Lymphocytes % 17.4 Monocytes % 5.6 Eosinophils % 0.2 Basophils % 0.1 Absolute Neutrophils 6.2 Absolute Lymphocytes 1.4 Absolute Monocytes 0.5 Absolute Eosinophils 0.0 Absolute Basophils 0.0 Sodium 137.9 Potassium 3.8 Chloride 103 Carbon Dioxide 26 Anion Gap 9 BUN 2 L Creatinine 0.50 L Est GFR ( Amer) > 60 Est GFR (Non-Af Amer) > 60 Glucose 94 Calcium 9.0 Total Bilirubin 3.5 H AST 86 H ALT 155 H Alkaline Phosphatase 119 Total Protein 6.7 Albumin 3.7 Impressions: Abdomen MRI 01/07/18 00:00 IMPRESSION: EXPECTED POSTSURGICAL CHANGE RELATED TO CHOLECYSTECTOMY WITH INTERVAL DEVELOPMENT OF INTRA AND EXTRAHEPATIC BILIARY DUCTAL DILATATION WITH PROBABLE RETAINED STONES/ DEBRIS IN THE DISTAL COMMON BILE DUCT. STABLE RIGHT HYDRONEPHROSIS LIKELY SECONDARY TO . Assessment & Plan - Diagnosis (1) Calculus of gallbladder with acute cholecystitis Is this a current diagnosis for this admission?: Yes (2) Elevated liver enzymes Is this a current diagnosis for this admission?: Yes - Plan Summary Plan Summary: I obtained an MRCP earlier today and it shows biliary ductal dilatation with retained stones as suspected given the persistent rise in her bilirubin. GI not available here this weekend till Monday (2 days) Will plan on transfer to a tertiary center for ERCP.
--- NOTE | 2018-01-07 22:08 | PDOC TRANSFER SUMMARY ---
General Admission Date/PCP: 01/05/18 12:18 Resuscitation Status: Full Code - Transfer Diagnosis (1) Calculus of gallbladder with acute cholecystitis Is this a current diagnosis for this admission?: Yes (2) Elevated liver enzymes Is this a current diagnosis for this admission?: Yes (3) Choledocholithiasis Is this a current diagnosis for this admission?: Yes (4) Retained gallstones following laparoscopic cholecystectomy Is this a current diagnosis for this admission?: Yes - Transfer Medications Home Medications: No Home Medications 01/05/18 Transfer Medications: Current Medications Enoxaparin Sodium (Lovenox Inj 40 Mg/0.4 Ml Disp.Syrin) 40 mg SUBCUT DAILY NAY Stop: 02/05/18 09:59 Last Admin: 01/07/18 10:41 Dose: 40 mg Piperacillin Sod/Tazobactam (Sod 3.375 gm/ Sodium Chloride) 100 mls @ 200 mls/ hr IV Q6 NAY Stop: 01/14/18 17:59 Last Admin: 01/07/18 17:42 Dose: 3.375 gm Morphine Sulfate (Morphine 10 Mg/Ml Inj) 4 mg IV Q4HP PRN PRN Reason: PAIN Stop: 01/12/18 22:49 Last Admin: 01/07/18 02:51 Dose: 4 mg Ondansetron HCl (Zofran Inj/Pf 4 Mg/2 Ml Sdv) 4 mg IV Q6HP PRN PRN Reason: NAUSEA Stop: 02/04/18 20:42 Last Admin: 01/06/18 04:41 Dose: 4 mg Oxycodone HCl (Oxy-Ir 5 Mg Tablet) 2.5 mg PO Q6HP PRN PRN Reason: FOR PAIN Stop: 01/13/18 13:29 Last Admin: 01/07/18 20:21 Dose: 2.5 mg Oxycodone/Acetaminophen (Percocet 5-325 Mg Tablet) 1 tab PO Q6HP PRN PRN Reason: FOR PAIN Stop: 01/13/18 13:28 Last Admin: 01/07/18 20:20 Dose: 1 tab - Allergies Allergies/Adverse Reactions: No Known Allergies Allergy (Verified 04/13/16 11:56) Hospital Course Hospital Course: The patient was admitted with acute cholecystitis and slightly elevated liver enzymes. She underwent laparoscoic cholecystectomy 2 days ago. Post op she has done subjectively well with no more pain, no nausea or vomiting, tolerating an oral diet. However, her bilirubin climbed and has remained high at 3.5 total and 2.7 direct. MRCP obtained today shows intra and extrahepatic biliary ductal dilatation. Normal post-cholecystectomy changes otherwise. The patient is being transferred to [facility] as there is no ERCP capability here for the next 2 days. Physical Exam Vital Signs: Temp Pulse Resp BP Pulse Ox 98.1 F 71 18 123/71 99 01/07/18 16:00 01/07/18 16:00 01/07/18 16:00 01/07/18 16:00 01/07/18 16:00 Intake & Output 01/06/18 01/07/18 01/08/18 06:59 06:59 06:59 Intake Total 2800 500 1000 Output Total 510 Balance 2290 500 1000 Weight 112.1 kg 113.4 kg General appearance: PRESENT: no acute distress Head exam: PRESENT: atraumatic, normocephalic Respiratory exam: PRESENT: clear to auscultation hellen. ABSENT: rales, rhonchi, wheezes Cardiovascular exam: PRESENT: RRR. ABSENT: diastolic murmur, rubs, systolic murmur GI/Abdominal exam: PRESENT: normal bowel sounds, soft, other - Port site incisions are clean and dry. ABSENT: distended, guarding, mass, organolmegaly, rebound, tenderness Neurological exam: PRESENT: alert, awake, oriented to person, oriented to place , oriented to time, oriented to situation, CN II-XII grossly intact. ABSENT: motor sensory deficit Skin exam: ABSENT: abrasion, cyanosis, dry, erythema, intact, jaundice, mottled , normal color, pallor, petechiae, rash, skin tears, urticaria, vesicles Results Laboratory Results: 01/07/18 13:12 01/07/18 06:54 01/07/18 01/07/18 06:54 13:12 WBC 8.1 RBC 4.02 Hgb 11.7 L Hct 34.5 L MCV 86 MCH 29.2 MCHC 34.0 RDW 14.0 Plt Count 275 Seg Neutrophils % 76.7 Lymphocytes % 17.4 Monocytes % 5.6 Eosinophils % 0.2 Basophils % 0.1 Absolute Neutrophils 6.2 Absolute Lymphocytes 1.4 Absolute Monocytes 0.5 Absolute Eosinophils 0.0 Absolute Basophils 0.0 Sodium 137.9 Potassium 3.8 Chloride 103 Carbon Dioxide 26 Anion Gap 9 BUN 2 L Creatinine 0.50 L Est GFR ( Amer) > 60 Est GFR (Non-Af Amer) > 60 Glucose 94 Calcium 9.0 Total Bilirubin 3.5 H AST 86 H ALT 155 H Alkaline Phosphatase 119 Total Protein 6.7 Albumin 3.7 Impressions: Abdomen MRI 01/07/18 00:00 IMPRESSION: EXPECTED POSTSURGICAL CHANGE RELATED TO CHOLECYSTECTOMY WITH INTERVAL DEVELOPMENT OF INTRA AND EXTRAHEPATIC BILIARY DUCTAL DILATATION WITH PROBABLE RETAINED STONES/ DEBRIS IN THE DISTAL COMMON BILE DUCT. STABLE RIGHT HYDRONEPHROSIS LIKELY SECONDARY TO . Plan Discharge Plan: I spoke with Dr Lr, OB prison classification counselor at [facility], and she has accepted the patient. GI consult will see her for possible ERCP while at [facility].
[2018-01-08 00:10] VITALS: BP 133/79
== END 2018-01-07 23:54 | disposition short-term general hospital (02) ==
LOC: ER 08:48 → INTOOBSV 12:18 → EH 12:18 → 4S 13:41 → LR 01-06 02:08 → 2N 01-06 03:15
PROVIDERS: ADMIT Obstetrics & Gynecology Gynecology; ATTEND Obstetrics & Gynecology Gynecology
PROC: 0FT44ZZ Resection of Gallbladder, Percutaneous Endoscopic Approach (ICD-10-PCS; principal; 2018-01-05 16:30)
DX: O99.612 Diseases of the digestive system complicating pregnancy, second trimester (principal); K80.12 Calculus of gallbladder with acute and chronic cholecystitis without obstruction; Z3A.24 24 weeks gestation of pregnancy; O34.219 Maternal care for unspecified type scar from previous cesarean delivery
CPT/HCPCS: 47562; 99285; 96361; 96374; 96375; 36415 ×3; 83690; 85025 ×2; 80053 ×3; 81001; 88304 ×2; 74181; J3490 ×3; J1100; J3010 ×2; J2765; J2270 ×3; J1650 ×3; J0330; J2405 ×2; J7030; J2704; J2543; J0131; 790; J2250

== ENCOUNTER 2018-04-23 05:06 | Inpatient (IN) | payer OTHER ==
[2018-04-20 11:31] LABS: APPEARANCE,URINE SLIGHTLY-CLOUDY; BILIRUBIN,URINE NEGATIVE (NEGATIVE); COLOR,URINE YELLOW; GLUCOSE, URINE NEGATIVE (NEGATIVE); KETONES,URINE NEGATIVE (NEGATIVE); LEUKOCYTE ESTERASE,URINE NEGATIVE (NEGATIVE); NITRITE,URINE NEGATIVE (NEGATIVE); PROTEIN,URINE NEGATIVE (NEGATIVE); URINE SPECIFIC GRAVITY 1.023; UROBILINOGEN,URINE NEGATIVE mg/dL (<2.0)
[2018-04-20 12:48] LABS: ABSOLUTE EOSINOPHILS # (AUTO) 0.1 10^3/uL (0.0-0.6); ABSOLUTE LYMPHOCYTES (AUTO) 2.1 10^3/uL (0.5-4.7); ABSOLUTE MONOCYTES (AUTO) 0.4 10^3/uL (0.1-1.4); ABSOLUTE NEUT (AUTO) 6.3 10^3/uL (1.7-8.2); BASOPHILS % (AUTO) 0.1 % (0-2); EOSINOPHILS % (AUTO) 0.8 % (0-6); HEMATOCRIT 34.2 % (36.0-47.0); HEMOGLOBIN 11.7 g/dL (12.0-15.5); LYMPHOCYTES % (AUTO) 23.5 % (13-45); MEAN CORPUSCULAR HEMOGLOBIN 29.5 pg (27.0-33.4); MEAN CORPUSCULAR HGB CONC 34.3 g/dL (32.0-36.0); MEAN CORPUSCULAR VOLUME 86 fl (80-97); MONOCYTES % (AUTO) 4.3 % (3-13); PLATELET COUNT 274 10^3/uL (150-450); RED BLOOD COUNT 3.98 10^6/uL (3.72-5.28); RED CELL DISTRIBUTION WIDTH 13.1 % (11.5-14.0); SEGMENTED NEUTROPHILS % (AUTO) 71.3 % (42-78); TOTAL CELLS COUNTED % (AUTO) 100 %; WHITE BLOOD COUNT 8.8 10^3/uL (4.0-10.5)
[2018-04-20 13:19] LABS: URINE AMPHETAMINES SCREEN NEGATIVE; URINE BARBITURATES SCREEN NEGATIVE; URINE BENZODIAZEPINES SCREEN NEGATIVE; URINE COCAINE SCREEN NEGATIVE; URINE MARIJUANA (THC) SCREEN NEGATIVE; URINE METHADONE SCREEN NEGATIVE; URINE PHENCYCLIDINE SCREEN NEGATIVE
[~2018-04-23 05:06] MED LIST: CEFAZOLIN 2 GM/D5W RTU 2 GM/50 ML RTUPB IV PRN; RINGERS SOLUTION,LACTATED 2,000 ML IV PRN
[2018-04-23] MEDS ORDERED: CEFAZOLIN INJ 1 GM VIAL ONE (05:23)
[2018-04-23] MEDS ORDERED: OXYTOCIN 10 UNIT/ML VIAL ONE (07:36)
[2018-04-23] MEDS ORDERED: PROPOFOL INJ 200 MG/20 ML VIAL IV ONE (07:36)
[2018-04-23] MEDS ORDERED: EPHEDRINE SULFATE INJ 50 MG/1 ML AMPULE ONE (07:37)
[2018-04-23] MEDS ORDERED: MIDAZOLAM 2 MG/2 ML INJ ONE (07:37)
[2018-04-23] MEDS ORDERED: FENTANYL CITRATE INJ/PF 100 MCG/2 ML AMPUL ONE (07:37)
[2018-04-23] MEDS ORDERED: BUPIVACAINE HCL/DEX-WATER/PF 15 MG/2 ML AMPULE ONE (07:42)
[2018-04-23] MEDS ORDERED: PROMETHAZINE HCL INJ 25 MG/1 ML VIAL IV PRN ×2 (08:25→08:54)
[2018-04-23] MEDS ORDERED: DIPHENHYDRAMINE HCL 50 MG/ML VIAL IV PRN (08:25)
[2018-04-23] MEDS ORDERED: MEPERIDINE HCL/PF INJ 25 MG/1 ML DISP.SYRIN IV PRN (08:25)
[2018-04-23] MEDS ORDERED: FENTANYL CITRATE INJ/PF 100 MCG/2 ML AMPUL IV PRN ×3 (08:25)
[2018-04-23] MEDS ORDERED: MORPHINE SULFATE 10 MG/ML INJ IV PRN ×2 (08:25→08:54)
[2018-04-23] MEDS ORDERED: OXYCODONE-ACETAMINOPHEN 5-325 MG TABLET PO PRN (08:54)
[2018-04-23] MEDS ORDERED: MEASLES,MUMPS&RUBELLA VACC/PF 0.5 ML VIAL SUBCUT PRN (08:54)
[2018-04-23] MEDS ORDERED: RINGERS SOLUTION,LACTATED 1,000 ML IV PRN (08:54)
[2018-04-23] MEDS ORDERED: ACETAMINOPHEN 1,000 MG/100 ML RTUPB IV PRN (08:54)
[2018-04-23] MEDS ORDERED: ACETAMINOPHEN 325 MG TABLET PO PRN (08:54)
[2018-04-23] MEDS ORDERED: SIMETHICONE 80 MG TAB.CHEW PO PRN (08:54)
[2018-04-23] MEDS ORDERED: DIPH/PERTUSS(ACELL)/TETANUS VAC/PF 0.5 ML SYR (>=10YO) IM PRN (08:54)
[2018-04-23] MEDS ORDERED: OXYTOCIN/NORMAL SALINE 20 UNIT/1,000 ML RTUINJ IV PRN (08:54)
[2018-04-23] MEDS ORDERED: DIPHENHYDRAMINE HCL 50 MG/ML VIAL ONE (09:00)
[2018-04-23] MEDS ORDERED: ACETAMINOPHEN 1,000 MG/100 ML RTUPB IV ONE (09:40)
--- NOTE | 2018-04-23 09:45 | OPERATIVE REPORT E ---
Operative Report NAME: MICHELE TAI : 1995 AGE: 22Y DATE OF SURGERY: 04/23/2018 ROOM: 215 PREOPERATIVE DIAGNOSIS: 1. IUP AT 39 WEEKS AND 2 DAYS. 2. PREVIOUS CESARIAN SECTION, DESIRES REPEAT. POSTOPERATIVE DIAGNOSIS: 1. IUP AT 39 WEEKS AND 2 DAYS. 2. PREVIOUS CESARIAN SECTION, DESIRES REPEAT. SURGEON: EDILMA REA M.D. ANESTHESIA: Dr. Sawyer, spinal FINDINGS: Male in cephalic presentation with of 8 and 9. Weight 3418 grams. ESTIMATED BLOOD LOSS: 750 mL COMPLICATIONS: None. PATHOLOGY: None. PROCEDURE: Repeat low transverse hysterotomy section. PROCEDURE IN DETAIL: The patient was taken to the operating room, prepared and draped in a normal sterile fashion in a supine position with a leftward tilt. A transverse skin incision was made with a scalpel and carried through to the underlying layer of fascia. Using the same scalpel the fascia was excised in the midline and extended laterally with Emerson. The rectus muscle was dissected sharply from the fascia using Mayos, both superiorly and inferiorly. The peritoneal cavity was entered sharply with the same Mayos. With good visualization of the bladder and the uterus, the bladder blade was inserted. The hysterotomy was nicked with the scalpel and extended laterally with surgeon finger fracture. The 's head was then delivered atraumatically. The nose and mouth were suctioned with a suction bulb and the cord was clamped and cut. The was handed off to waiting pediatricians. The cord blood was collected and the placenta was removed manually. The uterus was exteriorized and cleared of clots and debris. The hysterotomy was closed with 0-Monocryl in a running locked fashion and a second layer of the same suture was used to imbricate to ensure hemostasis. The uterus was returned to the abdomen. The peritoneal cavity was cleared of clots and debris. The rectus muscle and peritoneum were reapproximated with a mattress stitch of 2-0 chromic. Another interrupted stitch was placed in order to more securely close the rectus muscle and hold the bowel behind the uterus. The fascia was then closed with 0-Vicryl. The subcutaneous layer was closed with plain catgut and the skin was closed with 4-0 Vicryl. The patient tolerated the procedure well. Sponge, lap, and needle counts were correct x2, and the patient was taken to recovery in stable condition. DICTATING PHYSICIAN: EDILMA REA M.D. [id number] PHY#: [id number] ID: [id number] JOB#: [id number] ACCT: [id number] cc:EDILMA REA M.D. > [facility]
[2018-04-23] MEDS: PRENATAL VITAMIN W DHA CAPSULE PO SCH (10:00)
[2018-04-23] MEDS: DOCUSATE SODIUM 100 MG CAPSULE PO SCH ×2 (10:00→18:22)
[2018-04-23] MEDS ORDERED: PRENATAL VITAMIN W DHA CAPSULE PO ONE (10:00)
[2018-04-23] MEDS ORDERED: DOCUSATE SODIUM 100 MG CAPSULE ONE (10:00)
[2018-04-23] MEDS ORDERED: KETOROLAC TROMETHAMINE INJ/PF 30 MG/1 ML SDV ONE (10:36)
[2018-04-23] MEDS: KETOROLAC TROMETHAMINE INJ/PF 30 MG/1 ML SDV IV SCH ×2 (10:43→21:35)
[2018-04-23] MEDS ORDERED: IBUPROFEN 800 MG TABLET PO SCH (12:00)
[2018-04-23] MEDS: OXYCODONE-ACETAMINOPHEN 5-325 MG TABLET PO PRN ×2 (13:27→18:22)
[2018-04-23] MEDS ORDERED: PHENYLEPHRINE HCL INJ/PF 10 MG/1 ML SDV ONE (19:51)
[2018-04-24] MEDS: OXYCODONE-ACETAMINOPHEN 5-325 MG TABLET PO PRN ×3 (02:27→22:15)
[2018-04-24 06:17] LABS: HEMATOCRIT 29.8 % (36.0-47.0); HEMOGLOBIN 10.5 g/dL (12.0-15.5); MEAN CORPUSCULAR HEMOGLOBIN 30.3 pg (27.0-33.4); MEAN CORPUSCULAR HGB CONC 35.3 g/dL (32.0-36.0); MEAN CORPUSCULAR VOLUME 86 fl (80-97); PLATELET COUNT 188 10^3/uL (150-450); RED BLOOD COUNT 3.47 10^6/uL (3.72-5.28); RED CELL DISTRIBUTION WIDTH 13.7 % (11.5-14.0); WHITE BLOOD COUNT 8.3 10^3/uL (4.0-10.5)
[2018-04-24] MEDS: IBUPROFEN 800 MG TABLET PO SCH ×3 (06:41→17:45)
--- NOTE | 2018-04-24 08:17 | PDOC PROGRESS REPORT ---
Subjective-OB Progress Note for:: 04/24/18 Subjective: Doing well, no c/o, , passing gas, pain under control, eating well , no nausea, voiding, OOB Physical Exam (OB) Vital Signs: Temp Pulse Resp BP Pulse Ox 98.3 F 118 H 16 127/76 H 97 04/24/18 05:06 04/24/18 05:06 04/24/18 05:06 04/24/18 05:06 04/24/18 05:06 Intake & Output 04/23/18 04/24/18 04/25/18 06:59 06:59 06:59 Intake Total 1340 Output Total 3600 Balance -2260 Weight 111.9 kg - Dressing Removed: No Incision: Dressing Closure Type: Sutures - Lochia Lochia Amount: Scant < 10 ml Lochia Color: Rubra/Red - Abdomen Description: Tender, Soft, Round Hernia Present: No Fundal Description: Firm, Midline Fundal Height: u/u - u/2 Objective-Diagnostic Laboratory: 04/24/18 05:54 04/24/18 05:54 WBC 8.3 RBC 3.47 L Hgb 10.5 L Hct 29.8 L MCV 86 MCH 30.3 MCHC 35.3 RDW 13.7 Plt Count 188 Assessment and Plan(PN) - Assessment and Plan (1) H/O section Is this a current diagnosis for this admission?: Yes - Time Spent with Patient Time with patient: Less than 15 minutes Medications reviewed and adjusted accordingly: Yes - Disposition Anticipated Discharge: Home Within: within 24 hours
[2018-04-24] MEDS: DOCUSATE SODIUM 100 MG CAPSULE PO SCH ×2 (09:28→17:45)
[2018-04-24] MEDS: PRENATAL VITAMIN W DHA CAPSULE PO SCH (09:28)
[2018-04-25] MEDS: IBUPROFEN 800 MG TABLET PO SCH ×3 (00:31→11:35)
[2018-04-25] MEDS: DOCUSATE SODIUM 100 MG CAPSULE PO SCH (09:42)
[2018-04-25] MEDS: PRENATAL VITAMIN W DHA CAPSULE PO SCH (09:42)
--- NOTE | 2018-04-25 11:27 | PDOC DISCHARGE SUMMARY ---
Final Diagnosis Discharge Date: 04/25/18 - Final Diagnosis (1) Status post repeat low transverse section Is this a current diagnosis for this admission?: Yes Discharge Data - Discharge Medication Home Medications: Vit Calc,Iron,Folic [ Vitamins] 1 tab PO DAILY 04/20/18 Reason(s) for Admission: Ceasarean Section-Repeat Procedures: None Intrapartum Procedure(s): : Low Cervical, Transverse - Diagnosis Test Laboratory: Temp Pulse Resp BP Pulse Ox 97.5 F 94 18 117/76 98 04/25/18 07:29 04/25/18 07:29 04/25/18 07:29 04/25/18 07:29 04/25/18 07:29 04/20/18 04/20/18 04/24/18 10:42 12:12 05:54 RBC 3.98 3.47 L Hgb 11.7 L 10.5 L Hct 34.2 L 29.8 L Urine Opiates Screen NEGATIVE - Discharge information/Instructions Discharge Activity: Balance Activity w/Rest, Pelvic Rest Discharge Diet: Regular Disposition: HOME, SELF-CARE Follow up with: [facility] in: 5, Days
[2018-04-25 12:44] VITALS: BP 129/80
== END 2018-04-25 12:45 | disposition home or self-care (01) | DRG 766 ==
LOC: 2S 05:06
PROVIDERS: ADMIT Obstetrics & Gynecology; ATTEND Obstetrics & Gynecology
PROC: 4A1HXCZ Monitoring of Products of Conception, Cardiac Rate, External Approach (ICD-10-PCS; 2018-04-23)
PROC: 10D00Z1 Extraction of Products of Conception, Low, Open Approach (ICD-10-PCS; principal; 2018-04-23 07:45)
DX: O34.219 Maternal care for unspecified type scar from previous cesarean delivery (principal); Z3A.39 39 weeks gestation of pregnancy; Z37.0 Single live birth
CPT/HCPCS: 1961; 36415; 59025; 80307; 81001; 85025; 85027; 86850; 86900; 86901; 94799; J0131; J0690; J1200; J1885; J2250; J2370; J2590; J2704; J3010; J3490; J7120

== ENCOUNTER 2019-03-06 17:46 | Emergency (ER) | payer OTHER ==
[2019-03-06] MEDS ORDERED: METHYLPREDNISOLONE INJ 125 MG/2 ML SDV IV ONE (19:48)
[2019-03-06] MEDS ORDERED: IPRATROPIUM/ALBUTEROL 0.5-2.5 MG/3 ML AMPUL NEB ONE (19:48)
--- NOTE | 2019-03-06 20:24 | RADIOLOGY REPORT (SQ) ---
EXAM DESCRIPTION: XR CHEST 2 VIEWS COMPLETED DATE/TME: 03/06/2019 19:47 CLINICAL HISTORY: 23 years, Female, cough/wheeze COMPARISON: None. NUMBER OF VIEWS: Two TECHNIQUE: Frontal and lateral radiograph of the chest were obtained LIMITATIONS: None. FINDINGS: Cardiac and mediastinal contours are normal. A questionable cavitary lesion projects over the right posterior sixth rib, possibly artifactual/related to vascular structures. Lungs are otherwise clear. No pleural effusion or pneumothorax. IMPRESSION: Questionable cavitary lesion projecting over the right posterior sixth rib. Overall, this is most likely artifactual though correlation with CT is suggested for confirmation as the presence of a cavitary lesion could signify infection with an atypical organism such as mycobacterium (to include tuberculosis) or fungal organism. copyright 2010 [employer]- All Rights Reserved
[2019-03-06 21:08] LABS: ABSOLUTE EOSINOPHILS # (AUTO) 0.4 10^3/uL (0.0-0.6); ABSOLUTE LYMPHOCYTES (AUTO) 2.1 10^3/uL (0.5-4.7); ABSOLUTE MONOCYTES (AUTO) 0.5 10^3/uL (0.1-1.4); ABSOLUTE NEUT (AUTO) 9.6 10^3/uL (1.7-8.2); BASOPHILS % (AUTO) 0.3 % (0-2); EOSINOPHILS % (AUTO) 2.9 % (0-6); HEMATOCRIT 36.5 % (36.0-47.0); HEMOGLOBIN 12.3 g/dL (12.0-15.5); LYMPHOCYTES % (AUTO) 16.6 % (13-45); MEAN CORPUSCULAR HEMOGLOBIN 29.2 pg (27.0-33.4); MEAN CORPUSCULAR HGB CONC 33.8 g/dL (32.0-36.0); MEAN CORPUSCULAR VOLUME 86 fl (80-97); MONOCYTES % (AUTO) 4.1 % (3-13); PLATELET COUNT 286 10^3/uL (150-450); RED BLOOD COUNT 4.23 10^6/uL (3.72-5.28); RED CELL DISTRIBUTION WIDTH 13.2 % (11.5-14.0); SEGMENTED NEUTROPHILS % (AUTO) 76.1 % (42-78); TOTAL CELLS COUNTED % (AUTO) 100 %; WHITE BLOOD COUNT 12.6 10^3/uL (4.0-10.5)
--- NOTE | 2019-03-06 21:56 | RADIOLOGY REPORT (SQ) ---
CT CHEST ANGIOGRAPHY WITHOUT THEN WITH IV CONTRAST HISTORY: Shortness of breath. COMPARISON: None. TECHNIQUE: CT angiogram of the chest with IV contrast. 3-D MIP images were obtained in coronal and sagittal reconstructions. This exam was performed according to our departmental dose-optimization program, which includes automated exposure control, adjustment of the mA and/or kV according to patient size and/or use of iterative reconstruction technique. FINDINGS: No filling defects are seen in the pulmonary trunk or the left and right main pulmonary artery. There is limited evaluation of the segmental branches due to motion artifact. The thyroid gland is normal. No mediastinal or hilar adenopathy. The heart size is normal without pericardial effusion. The thoracic aorta is normal caliber. No consolidation, pleural effusion, or pneumothorax is identified. The visualized upper abdomen demonstrates no acute findings. No acute osseous findings are seen. IMPRESSION: No central pulmonary embolism.
[2019-03-06 22:11] LABS: ALANINE AMINOTRANSFERASE 18 U/L (9-52); ALBUMIN 4.6 g/dL (3.5-5.0); ALKALINE PHOSPHATASE 59 U/L (38-126); ANION GAP 11 (5-19); ASPARTATE AMINO TRANSFERASE 20 U/L (14-36); BILIRUBIN,DIRECT 0.3 mg/dL (0.0-0.4); BILIRUBIN,TOTAL 0.5 mg/dL (0.2-1.3); BLOOD UREA NITROGEN 8 mg/dL (7-20); CALCIUM 9.4 mg/dL (8.4-10.2); CARBON DIOXIDE 22 mmol/L (22-30); CHLORIDE 108 mmol/L (98-107); GLUCOSE 88 mg/dL (75-110); POTASSIUM 3.8 mmol/L (3.6-5.0); SODIUM 141.1 mmol/L (137-145); TOTAL PROTEIN 8.5 g/dL (6.3-8.2)
--- NOTE | 2019-03-06 22:28 | ER Document Report ---
ED Respiratory Problem - General Chief Complaint: Breathing Difficulty Stated Complaint: DIFFICULTY BREATHING Time Seen by Provider: 03/06/19 19:39 Primary Care Provider: [facility] [NO LOCAL MD] - Follow up as needed Notes: Patient is a 23-year-old female comes emergency room complaint of 3 days onset o f being short of breath. She states 3 days ago she woke up short of breath she had no runny nose no cough or congestion. Over the past couple days the runny nose and congestion is started along with a cough that is just been slightly clearish in presentation. The cough actually started later this afternoon and again it was clear mucus when she coughed up. Patient does smoke about 1 cigarette a day. Last menstrual period is unknown because she is on the Implanon. 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 She denies any fevers that she knows of. She has been audible wheezing and she is been feeling this when she takes a deep breath. She has no history of asthma but at one time several years ago she had some asthmatic bronchitis that was treated. Patient denies any chest pain at this time. She has had no nausea or vomiting no diaphoresis. TRAVEL OUTSIDE OF THE [place] IN LAST 30 DAYS: No - HPI Patient complains to provider of: Asthma Onset: Other - 3 days ago Duration: Continuous, Worse/persistent Quality of pain: Achy Severity: Moderate Pain Level: 3 Context: Smoker Short of Breath: Moderate Chest pain/discomfort: Worse with deep breaths Cough: Nonproductive Sputum amount: None Associated symptoms: Anxiety, Congestion, Difficulty breathing, Leg/calf/joint pain, Short of breath Similar symptoms previously: No Recently seen / treated by doctor: No - Related Data Allergies/Adverse Reactions: No Known Allergies Allergy (Verified 04/20/18 11:36) Past Medical History - General Information source: Patient - Social History Smoking Status: Current Some Day Smoker Cigarette use (# per day): Yes - 1 cigarette per day Chew tobacco use (# tins/day): No Smoking Education Provided: No Frequency of alcohol use: None Drug Abuse: None Lives with: Family Family History: None, Reviewed & Not Pertinent Patient has suicidal ideation: No Patient has homicidal ideation: No Renal/ Medical History: Denies: Hx Ovarian Cysts, Hx Peritoneal Dialysis, Hx Pelvic Inflammatory Disease Malignancy Medical History: Denies: Hx Breast Cancer, Hx Cervical Cancer, Hx Ovarian Cancer GI Medical History: Denies: Hx Gastroesophageal Reflux Disease, Hx Hiatal Hernia, Hx Ulcer Psychiatric Medical History: Reports: Hx Depression - not with Denies: Hx Bipolar Disorder, Hx Post Traumatic Stress Disorder, Hx Schizophrenia Infectious Medical History: Denies: Hx HIV Past Surgical History: Reports: Hx Section - x2, Hx Cholecystectomy - followed by endoscopy - Immunizations Hx Diphtheria, Pertussis, Tetanus Vaccination: Yes Review of Systems - Review of Systems Constitutional: No symptoms reported EENT: See HPI, Nose congestion, Sinus pressure, Sinus discharge Cardiovascular: No symptoms reported Respiratory: See HPI, Cough, Hurts to breathe, Short of breath, Wheezing Gastrointestinal: No symptoms reported Genitourinary: No symptoms reported Female Genitourinary: No symptoms reported Musculoskeletal: No symptoms reported Skin: No symptoms reported Hematologic/Lymphatic: No symptoms reported Neurological/Psychological: No symptoms reported -: Yes All other systems reviewed and negative Physical Exam - Vital signs Vitals: Temp Pulse Resp BP Pulse Ox 98.7 F 105 H 22 H 145/94 H 99 03/06/19 17:56 03/06/19 17:56 03/06/19 17:56 03/06/19 17:56 03/06/19 17:56 Interpretation: Normal, Hypertensive, Tachycardic - Notes Notes: PHYSICAL EXAMINATION: GENERAL: Patient is well-nourished well-developed obese 23-year-old female who is in no apparent distress on physical exam she does appear somewhat ill appearing. HEAD: Atraumatic, normocephalic. EYES: Pupils equal round and reactive to light, extraocular movements intact, conjunctiva are normal. ENT: Nares patent, oropharynx clear without exudates. Moist mucous membranes. NECK: Normal range of motion, supple without lymphadenopathy LUNGS: Also patient patient's lung coto show she has bilateral breath sounds breath sounds are decreased throughout with audible inspiratory and expiratory wheeze noted without stethoscope. With stethoscope you can auscultate some deep down rhonchi scattered in the lower lobes bilaterally. There is no rales noted. HEART: tachycardic rate and rhythm without murmurs ABDOMEN: Soft, nontender, nondistended abdomen. No guarding, no rebound. No masses appreciated. Female : deferred Musculoskeletal: Normal range of motion, no pitting or edema. No cyanosis. NEUROLOGICAL: Normal speech, normal gait. Normal sensory, motor exams PSYCH: Normal mood, normal affect. SKIN: Warm, Dry, normal turgor, no rashes or lesions noted. - General General appearance: Appears well, Alert - HEENT Head: Normocephalic, Atraumatic Eyes: Normal Pupils: PERRL - Respiratory Respiratory status: No respiratory distress Chest status: Nontender Breath sounds: Normal Chest palpation: Normal - Cardiovascular Rhythm: Regular Heart sounds: Normal auscultation Murmur: No - Abdominal Inspection: Normal Distension: No distension Bowel sounds: Normal Tenderness: Nontender Organomegaly: No organomegaly - Back Back: Normal, Nontender - Extremities General upper extremity: Normal inspection, Nontender, Normal color, Normal ROM, Normal temperature General lower extremity: Normal inspection, Nontender, Normal color, Normal ROM, Normal temperature, Normal weight bearing. No: Sindy's sign - Neurological Neuro grossly intact: Yes Cognition: Normal Orientation: AAOx4 [place] Coma Scale Eye Opening: Spontaneous [place] Coma Scale Verbal: Oriented Christina Coma Scale Motor: Obeys Commands [place] Coma Scale Total: 15 Speech: Normal Motor strength normal: LUE, RUE, LLE, RLE Sensory: Normal - Psychological Associated symptoms: Normal affect, Normal mood - Skin Skin Temperature: Warm Skin Moisture: Dry Skin Color: Normal Course - Re-evaluation Re-evalutation: 03/06/19 22:26 Original chest x-ray showed that there might be a cavitation on films. I had originally elected to do a d-dimer since patient has a history of smoking obesity and control with the Implanon and some lower extremity trauma from falling on kickboxing. This let me believe that she may be susceptible to a PE. However given the x-ray findings before lab work to come back I was already decided that with a defect there we could not be for certain so we went ahead and do the CT anyway CT does not show any cavitations actually does not show any PEs or any abnormalities. Given patient's presentation with the congestion runny nose and the definite audible wheezing noted without even a stethoscope felt necessary to place her on a steroid taper as well as antihistamine to dry her up and at this point we will not put her on an antibiotic. I will have her return to ER if she gets any worse. - Vital Signs Vital signs: Temp Pulse Resp BP Pulse Ox 98.4 F 94 16 130/76 H 99 03/06/19 22:36 03/06/19 22:36 03/06/19 22:36 03/06/19 22:36 03/06/19 22:36 - Laboratory Result Diagrams: 03/06/19 20:46 03/06/19 20:46 Laboratory results interpreted by me: 03/06/19 03/06/19 20:46 20:46 WBC 12.6 H Absolute Neutrophils 9.6 H Chloride 108 H Total Protein 8.5 H Discharge - Discharge Clinical Impression: Asthmatic bronchitis Qualifiers: Asthma severity: moderate Asthma persistence: persistent Asthma complication t ype: uncomplicated Qualified Code(s): J45.40 - Moderate persistent asthma, uncomplicated Condition: Stable Disposition: HOME, SELF-CARE Instructions: Bronchitis With Bronchospasm (Wheezing) (OM) Additional Instructions: Home and rest. Medication as prescribed. Use nasal saline 3-4 times a day to keep the nose moist and secretions thin. I am also placing you on a steroid taper to help open your lungs up. At this point given your presentation and we will put you on Zithromax pack because I am also put you on the steroids for a taper of 6 days. This hesitancy will lower your immune system and I really feel you need both of these in conjunction. Prescriptions: Azithromycin [Zithromax 250 mg Tablet] 250 mg PO ASDIR PRN #6 tablet PRN Reason: Prednisone 10 mg PO ASDIR 6 Days #1 tab.ds.pk Pseudoephedrine HCl [Sudafed 12 Hour] 120 mg PO BID #20 tablet.er Forms: Elevated Blood Pressure, Smoking Cessation Education, Return to Work Referrals: [facility] [NO LOCAL MD] - Follow up as needed
[2019-03-06 22:39] VITALS: BP 130/76
== END 2019-03-06 22:39 | disposition home or self-care (01) ==
LOC: ER 17:46
DX: J45.40 Moderate persistent asthma, uncomplicated (principal); S89.90XA Unspecified injury of unspecified lower leg, initial encounter; W19.XXXA Unspecified fall, initial encounter; Y93.89 Activity, other specified; R06.02 Shortness of breath; F17.210 Nicotine dependence, cigarettes, uncomplicated; R05 Cough; R09.81 Nasal congestion; R09.89 Other specified symptoms and signs involving the circulatory and respiratory systems; F41.9 Anxiety disorder, unspecified; R07.1 Chest pain on breathing; R00.0 Tachycardia, unspecified; E66.9 Obesity, unspecified; Z97.5 Presence of (intrauterine) contraceptive device
CPT/HCPCS: 94640; 99285; 96374; 36415; 85025; 80053; 85379; 71046; 71275; J2930; J7620